=== PATIENT | female | born 1955 | race Caucasian/White ===

== ENCOUNTER 2018-06-10 10:32 | Outpatient (REF) | payer OTHER, SELFPAY ==
[2018-06-10 13:01] LABS: Abs Immature Grans 0.01 k/cumm (0.0-0.09); Absolute Basophil Count 0.02 k/cumm (0.0-0.2); Absolute Eosinophil Count 0.14 k/cumm (0.0-0.7); Absolute Lymphocyte Count 2.07 k/cumm (1.2-3.4); Absolute Monocyte Count 0.52 k/cumm (0.11-0.7); Absolute Neutrophil Count 4.13 k/cumm (1.2-6.7); Basophils % 0.3; HCT 41.7 % (36.0-46.0); HGB 14.3 g/dL (12.0-15.5); Immature Grans % 0.1; Mean Corp. HGB Concentration 34.3 g/dL (32.0-36.0); Mean Corpuscular Hemoglobin 31.6 pg (27.0-33.0); Mean Corpuscular Volume 92.3 fL (80-95); Mean Platelet Volume 11.2 fL (8.0-11.0); Monocytes % 7.5; Neutrophils % 60.1; Platelet Count 264 x1000/uL (130-400); RBC 4.52 m/cumm (4.00-5.20); RBC Distribution Width 12.4 % (11.7-14.6); White Blood Cell Count 6.89 k/cumm (4.4-10.8)
[2018-06-10 13:31] LABS: ALT 32 U/L (12-78); AST 17 U/L (15-37); Albumin 4.2 g/dL (3.4-5.0); Alkaline Phosphatase 100 U/L (46-116); Anion Gap 9.3 mmol/L (3-11); BUN 9 mg/dL (7-18); Bilirubin, Total 0.5 mg/dL (0.2-1.0); CO2 28.7 mmol/L (21.0-32.0); CREATININE 0.78 mg/dL (0.55-1.02); Chloride 105 mmol/L (98-107); Glucose 91 mg/dL (70-100); Potassium 3.9 mmol/L (3.5-5.1); Sodium 143 mmol/L (136-145); Total Protein 6.9 g/dL (6.4-8.2)
== END 2018-06-10 10:52 ==
LOC: NCHCN 10:32
PROVIDERS: PCP Nurse Practitioner Family; Visit Provider Nurse Practitioner Family
DX: R10.9 Unspecified abdominal pain (principal)
CPT/HCPCS: 80053; 85025; 87086

== ENCOUNTER 2018-06-10 15:19 | Outpatient (CLI) | payer OTHER, SELFPAY ==
--- NOTE | 2018-06-10 15:00 | DI.CT_ITS ---
SYMPTOM/DIAGNOSIS: LT FLANK PAIN, R10.[address]: Renal colic CT was performed according to protocol. Lack of IV contrast does limit evaluation of the abdominal organs. The visualized lung bases are clear. The unenhanced visualization portions of the liver, spleen, pancreas, gallbladder and bile ducts are unremarkable. There is a fat density, 1.4 cm. mass arising from the left adrenal gland. This likely reflects benign lesion such as a myolipoma. The right adrenal gland is unremarkable. The kidneys show no evidence of nephrolithiasis, ureterolithiasis or hydronephrosis. The urinary bladder is intact. No bladder calculi are prudence. The reproductive organs are unremarkable. The bowel shows no evidence of obstruction or inflammation. There is diverticulosis of the colon but no evidence of acute diverticulitis. There is a normal appendix in the right lower quadrant. There is atherosclerosis of the abdominal aorta but no aneurysmal dilatation. No significant abdominal or pelvic adenopathy, ascites or pneumoperitoneum is seen. Note is made of a small fat containing umbilical hernia. IMPRESSION: No evidence of nephrolithiasis or hydronephrosis.
== END 2018-06-10 15:39 ==
PROVIDERS: PCP Nurse Practitioner Family; Visit Provider Nurse Practitioner Family
DX: R10.32 Left lower quadrant pain (principal); K57.30 Diverticulosis of large intestine without perforation or abscess without bleeding; K42.9 Umbilical hernia without obstruction or gangrene
CPT/HCPCS: 74176

== ENCOUNTER 2018-08-15 10:14 | Outpatient (REF) | payer OTHER, SELFPAY ==
[2018-08-15 12:26] LABS: Abs Immature Grans 0.02 k/cumm (0.0-0.09); Absolute Basophil Count 0.03 k/cumm (0.0-0.2); Absolute Eosinophil Count 0.15 k/cumm (0.0-0.7); Absolute Lymphocyte Count 2.86 k/cumm (1.2-3.4); Absolute Monocyte Count 0.68 k/cumm (0.11-0.7); Absolute Neutrophil Count 8.81 k/cumm (1.2-6.7); Basophils % 0.2; Eosinophils % 1.2; HCT 42.2 % (36.0-46.0); HGB 14.5 g/dL (12.0-15.5); Immature Grans % 0.2; Lymphocytes % 22.8; Mean Corp. HGB Concentration 34.4 g/dL (32.0-36.0); Mean Corpuscular Hemoglobin 31.9 pg (27.0-33.0); Mean Platelet Volume 10.5 fL (8.0-11.0); Monocytes % 5.4; Neutrophils % 70.2; Platelet Count 273 x1000/uL (130-400); RBC 4.54 m/cumm (4.00-5.20); RBC Distribution Width 13.3 % (11.7-14.6); White Blood Cell Count 12.55 k/cumm (4.4-10.8)
[2018-08-15 12:35] LABS: Anion Gap 11.3 mmol/L (3-11); BUN 11 mg/dL (7-18); CO2 27.7 mmol/L (21.0-32.0); CREATININE 0.75 mg/dL (0.55-1.02); Calcium 9.3 mg/dL (8.5-10.1); Chloride 103 mmol/L (98-107); Glucose 101 mg/dL (70-100); Potassium 3.8 mmol/L (3.5-5.1); Sodium 142 mmol/L (136-145)
== END 2018-08-15 10:34 ==
LOC: NCHCN 10:14
PROVIDERS: PCP Nurse Practitioner Family; Visit Provider Nurse Practitioner Family
DX: R10.32 Left lower quadrant pain (principal); K62.5 Hemorrhage of anus and rectum
CPT/HCPCS: 80048; 85025

== ENCOUNTER 2018-08-15 10:45 | Outpatient (CLI) | payer OTHER, SELFPAY ==
[2018-08-15] MEDS: Breeza Beverage 473 ML BTL PO ×2 (10:31→10:32)
[2018-08-15] MEDS: Omnipaque 350 MG/ML 50 ML BTL PO (10:31)
--- NOTE | 2018-08-15 13:05 | DI.CT_ITS ---
SYMPTOM/DIAGNOSIS: RECTAL BLEEDING, ABD PAIN, K62.5, R10.[address]: Comparison is made with noncontrast exam dated 06/10/18. Images were performed from the lung bases through the ischial tuberosities after IV and oral contrast. There is thickening of the wall of the descending colon beginning several centimeters beneath the splenic flexure and extending to the junction with the sigmoid. The wall thickening is moderate and diffuse, consistent with colitis. There are a few diverticula of the sigmoid colon but no evidence of diverticulitis. There is no gross evidence of a mass. There is no evidence of obstruction. The small bowel is unremarkable. The appendix appears normal. The lung bases are clear. The liver, gallbladder, spleen, pancreas and kidneys are unremarkable. A tiny fatty density nodule is noted on the left adrenal gland, an adenoma versus myelolipoma. The uterus, ovaries and bladder are unremarkable. IMPRESSION: Wall thickening of the descending colon, consistent with infectious versus inflammatory colitis.
[2018-08-15] MEDS: Omnipaque 350 MG/ML 100 ML BTL IV (13:07)
== END 2018-08-15 11:05 ==
PROVIDERS: PCP Nurse Practitioner Family; Visit Provider Nurse Practitioner Family
DX: K62.5 Hemorrhage of anus and rectum (principal); R10.32 Left lower quadrant pain; K63.89 Other specified diseases of intestine
CPT/HCPCS: 74177; J3490; Q9967

== ENCOUNTER 2018-08-16 11:35 | Outpatient (REF) | payer OTHER, SELFPAY ==
[2018-08-17 10:59] LABS: Campylobacter PCR SEE COMMENTS; Salmonella PCR SEE COMMENTS; Shiga Toxin PCR SEE COMMENTS; Shigella/Enteroinvasive Ecoli SEE COMMENTS
== END 2018-08-16 11:55 ==
LOC: NCHCN 11:35
PROVIDERS: PCP Nurse Practitioner Family; Visit Provider Nurse Practitioner Family
DX: K62.5 Hemorrhage of anus and rectum (principal); R10.32 Left lower quadrant pain
CPT/HCPCS: 87505; 83630; 87177

== ENCOUNTER 2019-05-16 00:19 | Outpatient (CLI) | payer MEDICAID, SELFPAY ==
--- NOTE | 2019-05-16 12:00 | DI.MAMMO_ITS ---
SYMPTOM/DIAGNOSIS: H/O ABNL MAMMO, SCREENING MAMMOGRAMS: Mammograms were interpreted according to the usual protocol including computer analysis with CAD system, tomosynthesis and C view imaging. The breasts are of moderate density with fairly symmetrical distribution of fibroglandular tissue. No dominant mass or clumped microcalcification is identified in either breast. Current examination is compared with previous examinations including 01/2018 and there has been no gross interval change in appearance in comparison with the previous studies. CONCLUSION: No specific evidence of malignancy at this time. Routine screening examinations are suggested at yearly intervals in this age group according to the ACS/ACR guidelines. Category 1. Breast density, Category B. MQSA ASSESSMENT OF FINDINGS: Negative. Category 1. Patient will receive a letter notifying them of these results. BI-RADS category B. There are scattered areas of fibroglandular density.
== END 2019-05-16 00:39 ==
PROVIDERS: PCP Nurse Practitioner Family; Visit Provider Nurse Practitioner Family
DX: Z12.31 Encounter for screening mammogram for malignant neoplasm of breast (principal)
CPT/HCPCS: 77063; 77067